=== PATIENT | female | born 1970 | race Caucasian/White ===

== ENCOUNTER → 2021-03-11 | Outpatient (CLI) | payer OTHER ==
[~2021-03-11] MED LIST: Ciprofloxacin500 MG; LISINOPRIL10 MG; PREDNISONE10 MG
== END | disposition home or self-care (01) ==
LOC: US 15:00
PROVIDERS: ATTEND Nurse Practitioner
DX: Z30.431 Encounter for routine checking of intrauterine contraceptive device (principal)

== ENCOUNTER → 2023-03-02 | Outpatient (CLI) | payer OTHER | LOC: MAMMO 15:30 | PROVIDERS: ATTEND Nurse Practitioner | DX: Z12.31 Encounter for screening mammogram for malignant neoplasm of breast (principal) ==